=== PATIENT | male | born 1960 | race American Indian/Alaskan Native ===

== ENCOUNTER 2017-02-11 11:05 | Outpatient (CLI) | payer OTHER ==
--- NOTE | 2017-02-11 14:34 | XRay Report ---
Bilateral knee: History: Back injury, neck injury shoulder injury. Findings: No fracture or dislocation. Mild arthritic changes lateral compartment left knee joint. No soft tissue calcification. No evidence of acute fracture. Impression: Mild arthritic changes left knee.
--- NOTE | 2017-02-11 15:30 | XRay Report ---
LEFT HIP: History: Pain after trauma. The bony architecture is intact without evidence of fracture or dislocation. No significant soft tissue abnormality is seen. IMPRESSION: Normal left hip.
--- NOTE | 2017-02-11 15:31 | XRay Report ---
LEFT SHOULDER: History: Pain after trauma. Routine views demonstrate normal bony and soft tissue structures with normal joint alignment of the shoulder. IMPRESSION: Normal study.
== END 2017-02-11 11:06 | disposition home or self-care (01) ==
LOC: XRAY 11:05
PROVIDERS: ATTEND Internal Medicine
DX: M17.12 Unilateral primary osteoarthritis, left knee (principal); S49.92XD Unspecified injury of left shoulder and upper arm, subsequent encounter; S39.92XD Unspecified injury of lower back, subsequent encounter; S19.9XXD Unspecified injury of neck, subsequent encounter; X58.XXXD Exposure to other specified factors, subsequent encounter